=== PATIENT | female | born 1995 | race Caucasian/White ===

== ENCOUNTER 2024-06-28 17:26 | Emergency (ER) | payer SELFPAY ==
[2024-06-28 17:34] VITALS: BP 156/94
[2024-06-28 19:01] VITALS: BMI 30.4
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
[2024-06-28] MEDS: TYLENOL 1000 MG PO (20:17)
[2024-06-28] MEDS: MOTRIN 600 MG PO (21:40)
[2024-06-29 00:28] VITALS: BP 124/67
[2024-06-29 07:15] VITALS: BP 120/74
--- NOTE | 2024-06-29 08:46 | CM ---
Addendum entered by Jahaira Vital RN 06/29/24 09:16:
Patient spoke with [facility] for assisted resources. Patient stated that she plans to go to work today from the ER and then she will stay with her brother in [place]. She plans to follow up with [facility] for further resources.
Original Note:
CM met with patient in room. Patient given number for [facility]. Plan for patient to call to request assistance. CM will remain available.
== END 2024-06-29 10:25 | disposition home or self-care (01) ==
LOC: EMR 17:26
PROVIDERS: EMERGENCY PHYSICIAN Student in an Organized Health Care Education/Training Program
DX: S81.851A Open bite, right lower leg, initial encounter (principal); S00.12XA Contusion of left eyelid and periocular area, initial encounter; Y04.1XXA Assault by human bite, initial encounter; Y04.0XXA Assault by unarmed brawl or fight, initial encounter
CPT/HCPCS: 99284; 70450; 70486

== ENCOUNTER 2025-02-27 12:48 | Emergency (ER) | payer SELFPAY ==
[2025-02-27 12:51] VITALS: BP 141/88
--- NOTE | 2025-02-27 14:03 | ED.GENMED ---
History of Present Illness
General
Chief Complaint: Psychiatric Problem
Source: patient
Exam Limitations: none
Time Seen by Provider: 02/27/25 13:47
History of Present Illness
History of Present Illness:
29yoF with no significant past medical history presenting via EMS for psychiatric evaluation. Patient has had a very bad week. Her brother and she broke up with her boyfriend all within the past week. She has been feeling very overwhelmed
and started to have suicidal thoughts today and she decided to call 911. She denies any plan or history of suicide attempts. She was on an antidepressant several years ago but does not take anything currently. She denies any visual or auditory
hallucinations. No drug or alcohol use.
Past History
Past History
ED Past Medical History: None
ED Past Surgical History: Other
Social History
Tobacco: Non-smoker
Alcohol: None
Drug: None
Personal: Single
Living: with roommate
Phy Exam
General Physical Exam
General Presentation: well appearing and no apparent distress
General Skin: warm and dry
General Habitus: normal
ENT Exam
ENT Exam: normocephalic
Pulmonary Exam
Pulmonary Exam: no respiratory distress
Neurological Exam
Neurological Exam: alert
[place] Coma Scale
Eye Opening: Spontaneous
Verbal Response: Oriented
Motor Response: Obeys Commands
GCS Total Score: 15
Skin Exam
Skin Exam: normal color and warm/dry
Psychiatric Exam
Psychiatric Exam: other (Flat affect. +SI without plan. No signs of psychosis.)
Course
Orders/Labs/Results
Orders:
Orders
02/27/25 12:55
1:1 Observation - Suicide/ Violent Behavior As Directed
Crisis Consult Urgent
Reason for Consult: suicidal ideation
02/27/25 14:05
Test Result ONCE
02/27/25 14:16
, Urine Qualitative Screen [HCG, Urine Qualitative Screen] Urgent
Date Specimen was Collected: 02/27/25
Time Specimen was Collected: 14:13
Vital Signs
Initial and Last Documented VS:
Initial Vital Signs
Temp Pulse Resp BP Pulse Ox
98.7 F 81 16 141/88 97
02/27/25 12:51 02/27/25 12:51 02/27/25 12:51 02/27/25 12:51 02/27/25 12:51
Last Documented Vital Signs
Temp Pulse Resp BP Pulse Ox
98.7 F 81 16 141/88 97
02/27/25 12:51 02/27/25 12:51 02/27/25 12:51 02/27/25 12:51 02/27/25 14:05
MDM/Problems Addressed
Differential Diagnosis Includes:
29yoF here for psych eval after she started having suicidal thoughts today. Under a lot of stress recently as her brother just and she broke up with her boyfriend. Denies plan. Not currently on meds or in treatment. Flat affected noted.
No signs of psychosis. Patient medically cleared.
Crisis consulted and patient was given outpatient resources. No indication for 302 at this time. Safety plan set up by crisis and patient advised to return to the ED with any worsening symptoms. She was discharged in stable condition.
*Pulse Oximetry
SaO2: 97
Oxygen Mode of Delivery: Room air
Patient hypoxic: no (97%)
*Critical Care Note
Total Time (30-74mins, 75-104mins- exclusive of procedures): Not Applicable
ED Attending Note
-
Portions of this chart may have been created with voice recognition software.� Occasional wrong word or��sound alike� substitutions may have occurred due to the inherent limitations of voice recognition software.
Discharge Plan
Departure
Patient Disposition: Home (Routine Discharge)
Date of Disposition: 02/27/25
Time of Disposition: 15:18
Patient with high blood pressure during this ER visit?: Yes
Discharge Problem:
Suicidal ideations, Situational stress
Instructions: Suicide prevention
Prescriptions:
No Action
amoxicillin-pot clavulanate 875-125 mg tablet
1 tab PO BID 7 Days Qty: 14 0RF
Referrals:
UNKNOWN - PT NOT,INTERVIEWE [Family Provider]
Activity Restrictions/Additional Instructions:
Please follow-up with the outpatient resources provided. Return to the ER with any worsening symptoms or plans to harm yourself.
Interventions
Interventions:
*Risk Screen - Suicide Last Done: 02/27/25 12:51
*General Assessment Last Done: 02/27/25 12:51
*Neglect/Abuse Screening Last Done: 02/27/25 12:51
*ED- Fall Risk Assessment Last Done: 02/27/25 13:01
*ED COVID-19 Vaccine History Last Done: 02/27/25 13:01
*Nursing Disposition Last Done: 02/27/25 15:52
ED-Psychological Assessment Last Done: 02/27/25 12:51
Discharge Date and Time
Discharge Date/Time: 02/27/25 16:08
Print Language: MACANESE
[2025-02-27 14:24] LABS: HCG, Urine Qualitative Screen Negative
== END 2025-02-27 16:08 | disposition home or self-care (01) ==
LOC: EMR 12:48
PROVIDERS: Physician Assistant; EMERGENCY PHYSICIAN Emergency Medicine
DX: R45.851 Suicidal ideations (principal); Z73.3 Stress, not elsewhere classified; Z63.4 Disappearance and death of family member; Z63.8 Other specified problems related to primary support group; Z59.89 Other problems related to housing and economic circumstances; R03.0 Elevated blood-pressure reading, without diagnosis of hypertension
CPT/HCPCS: 99283; 81025